=== PATIENT | male | born 1955 | race Caucasian/White ===

== ENCOUNTER 2018-06-19 05:43 | Inpatient (IN) | payer OTHER ==
[2018-06-19 05:45] VITALS: BMI 31.8
--- NOTE | 2018-06-19 05:54 | ED PDOC ---
Arrival/HPI - General Time Seen by Provider: 06/19/18 05:48 Historian: Patient - History of Present Illness Narrative History of Present Illness (Text): 06/19/18 05:50 A 63 year old, whose past medical history includes hypertension, PCI with stent placement, diabetes, CHF, CABG, CVA, CAD, presents to the emergency room complaining of shortness of breath and cough since early this morning.No chest pain.No hx. of any fever or chills.No N/V/ or D. PMD: Dr. Miramontes Time/Duration: Other (earlier today) Symptom Onset: Gradual Symptom Course: Unchanged Activities at Onset: Light Past Medical History - Provider Review Nursing Documentation Reviewed: Yes - Cardiac Hx Pacemaker: No - Neurological Hx Paralysis: No - Hematological/Oncological Hx Blood Transfusions: Yes (07/2013) Hx Blood Transfusion Reaction: No - Musculoskeletal/Rheumatological Hx Musculoskeletal Disorders: No - Psychiatric Hx Emotional Abuse: No Hx Physical Abuse: No Hx Substance Use: No - Anesthesia Hx Anesthesia Reactions: No Hx Malignant Hyperthermia: No - Suicidal Assessment Feels Threatened In Home Enviroment: No Family/Social History - Physician Review Nursing Documentation Reviewed: Yes Family/Social History: No Known Family HX Hx Alcohol Use: Yes (OCCASSIONAL) Hx Substance Use: No Allergies/Home Meds Allergies/Adverse Reactions: Allergies No Known Allergies Allergy (Verified 06/19/18 06:09) Home Medications: Home Meds Medication Instructions Recorded Confirmed Amlodipine Besylate 10 mg PO DAILY 04/22/14 05/15/14 Enalapril Maleate 2.5 mg PO DAILY 04/22/14 05/15/14 Glipizide 10 mg PO DAILY 04/22/14 05/15/14 Lisinopril/Hydrochlorothiazide 1 tab PO DAILY 04/22/14 05/15/14 [Lisinopril-Hydrochlorothiazide 25 mg-20 mg] Metoprolol Tartrate 25 mg PO DAILY 04/22/14 05/15/14 Aspirin 81 mg PO DAILY 05/13/14 05/15/14 Clopidogrel [Plavix] 75 mg PO DAILY 05/13/14 05/15/14 MetFORMIN [glucoPHAGE] 1,000 mg PO DAILY 05/15/14 05/15/14 Review of Systems - Physician Review All systems were reviewed & negative as marked: Yes - Review of Systems Respiratory: SOB, Cough Physical Exam Vital Signs Reviewed: Yes Blood Pressure: Hypertensive Pulse: Regular Respiratory Rate: Normal Appearance: Positive for: Well-Appearing Mental Status: Positive for: Alert and Oriented X 3 - Systems Exam Head: Present: Atraumatic, Normocephalic Pupils: Present: PERRL Extroacular Muscles: Present: EOMI Conjunctiva: Present: Normal Mouth: Present: Moist Mucous Membranes Neck: Present: Normal Range of Motion Respiratory/Chest: Present: Good Air Exchange, Rhonchi. No: Respiratory Distress, Accessory Muscle Use Cardiovascular: Present: Regular Rate and Rhythm, Normal S1, S2. No: Murmurs Abdomen: No: Tenderness, Distention, Peritoneal Signs Back: Present: Normal Inspection Upper Extremity: Present: Normal Inspection. No: Cyanosis, Edema Lower Extremity: Present: Normal Inspection. No: Edema Neurological: Present: GCS=15, CN II-XII Intact, Speech Normal, Motor Func Grossly Intact, Normal Sensory Function Skin: Present: Warm, Dry, Normal Color. No: Rashes Psychiatric: Present: Alert, Oriented x 3, Normal Insight, Normal Concentration Medical Decision Making ED Course and Treatment: 06/19/18 05:53 Impression: 63 year old male presenting to the emergency room complaining of shortness of breath and cough. Plan: -- Reassess and disposition Prior Visits: Notes and results from previous visits were reviewed. Progress Notes: 06/19/18 06:56 Case was discussed with Dr.A. Miramontes.Accepts to his service. 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 Ulcer: No History Surgical Site Infection Following: None - Disposition Have Diagnosis and Disposition been Completed?: Yes Diagnosis: CHF (congestive heart failure) Disposition: HOSPITALIZED Disposition Time: 06:49 Patient Problems: Current Active Problems Problem Status Onset CHF (congestive heart failure) Acute Condition: STABLE Discharge Instructions (ExitCare): Heart Failure (ED) Referrals: Delano Miramontes MD [Primary Care Provider] - Follow up with primary
[2018-06-19] MEDS ORDERED: Albuterol-Ipratrop 3 mg / 0.5 (3 ml) UD ONE (06:01)
[2018-06-19] MEDS ORDERED: Albuterol-Ipratrop 3 mg / 0.5 (3 ml) UD IH STA (06:03)
[2018-06-19 06:26] LABS: HEMOGLOBIN 13.9 g/dL (14.0-18.0); MEAN CELL VOLUME 95.9 fl (80.0-105.0); MEAN CORPUSCULAR HEMOGLOBIN 31.8 pg (25.0-35.0); MEAN CORPUSCULAR HGB CONC 33.2 g/dl (31.0-37.0); MEAN PLATELET VOLUME 11.6 fl (7.0-11.0); RBC 4.37 10^6/uL (3.5-6.1); RED CELL DISTRIBUTION WIDTH 12.9 % (11.5-14.5)
[2018-06-19 06:30] LABS: INR 1.08; PARTIAL THROMBOPLASTIN TIME 31.9 Seconds (26.9-38.3); PROTHROMBIN TIME 12.2 SECONDS (9.4-12.5)
[2018-06-19 06:31] LABS: ALBUMIN 4.4 g/dL (3.0-4.8); ALT/SGPT 29 U/L (7-56); AST/SGOT 27 U/L (17-59); BLOOD UREA NITROGEN 18 mg/dL (7-21); CALCIUM 9.1 mg/dL (8.4-10.5); GFR NON-AFRICAN AMERICAN > 60
[2018-06-19 06:42] LABS: B-TYPE NATRIURETIC PEPTIDE 949 pg/mL (0-450); TROPONIN I 0.03 ng/mL
--- NOTE | 2018-06-19 10:00 | RAD ---
Date of service: 06/19/2018 HISTORY: sob COMPARISON: No prior. FINDINGS: LUNGS: The lungs are well inflated. There is confluent airspace disease in both lower lobes. There is moderate pulmonary venous congestion with redistribution. PLEURA: No pleural effusions or pneumothorax. CARDIOVASCULAR: Mild cardiomegaly. Status post CABG. No aortic atherosclerotic calcifications present. OSSEOUS STRUCTURES: Within normal limits for the patient's age. VISUALIZED UPPER ABDOMEN: Normal. OTHER FINDINGS: None. IMPRESSION: Findings are most compatible with mild congestive heart failure with a small left pleural effusion. Confluent airspace disease in the lower lobes likely subsegmental atelectasis.
[2018-06-19] MEDS: Albuterol-Ipratrop 3 mg / 0.5 (3 ml) UD IH SCH ×5 (10:54→22:55)
[2018-06-19] MEDS: Insulin Reg-LOW-Coverage SC SCH ×3 (11:30→21:43)
--- NOTE | 2018-06-19 12:06 | HP ---
HISTORY OF PRESENT ILLNESS: The patient is a 63-year-old man with a past medical history of CAD s/p PCI with multiple stent placement s/p CABG, ischemic cardiomyopathy and chronic systolic heart failure (EF of 30%) who presented for evaluation of a 3 day history of progressively worsening dyspnea, 2-pillow orthopnea and cough productive of clear sputum. He was in his usual state of health until approximately 3 days prior to presentation when he developed the aforementioned symptoms. Over the following 48-72 hours he noticed increased work of breathing associated with decreased exercise tolerance. He also reported associated 2-pillow orthopnea and cough intermittently productive of clear sputum. He denied fevers, chills, rigors, hemoptysis, chest pain, palpitations or pedal edema associated with his symptoms. Due to his extensive underlying cardiac history, he opted for ED evaluation. In the ED he was afebrile and hemodynamically stable, albeit in mild respiratory distress. Laboratory studies demonstrated an elevated BNP and a chest x-ray was consistent with a CHF pattern. He received Lasix 40 mg IV x 1 and subsequently diuresed 1.1L with significant improvement in his respiratory status. He was subsequently admitted to the telemetry [facility] for continued management of acute on chronic systolic heart failure exacerbation. PAST MEDICAL HISTORY: As per HPI, also hypertension, non-insulin dependent diabetes mellitus and erectile dysfunction. PAST SURGICAL HISTORY: As per HPI, also surgical excision of scalp lipoma and ophthalmologic repair of right vitreous hemorrhage. ALLERGIES: NKDA. MEDICATIONS: Lisinopril/HCTZ 20/25 mg p.o. daily, Amlodipine 10 mg p.o. daily, Glipizide 10 mg p.o. b.i.d., Aspirin 81 mg p.o. daily and Lopressor 25 mg p.o. b.i.d. FAMILY HISTORY: Significant for hypertension, hyperlipidemia and diabetes. SOCIAL HISTORY: The patient reports social alcohol use and former tobacco use. He denies illicit drug abuse. REVIEW OF SYSTEMS: A 12-point review of systems is negative except as per HPI. PHYSICAL EXAMINATION: VITAL SIGNS: T 98.1, P 83, BP 140/70, RR 16, O2 saturation 96% on 3L NC. GENERAL: No apparent distress. HEENT: Normocephalic, atraumatic. EOMI. No scleral icterus. No conjunctival pallor. NECK: No JVD. No bruits. LUNGS: Decreased breath sounds at the bases with scattered rhonchi. CARDIOVASCULAR: Regular rate and rhythm. Normal S1 and S2. ABDOMEN: Normoactive bowel sounds, soft, nontender and nondistended. EXTREMITIES: Trace pedal edema. NEUROLOGIC: Awake, alert and oriented x 3. No focal motor deficits. LABORATORY DATA: WBC 11, hemoglobin 14, hematocrit 42, platelets 243. Sodium 142, potassium 4.1, chloride 106, bicarb 23, BUN 18, creatinine 0.6, glucose 203. BNP 949. Troponin 0.03. IMAGING STUDIES: 1. Chest x-ray demonstrated cardiomegaly with pulmonary venous congestion consistent with CHF pattern. ASSESSMENT: The patient is a 63-year-old man with a past medical history of CAD s/p PCI with stent placement s/p CABG, ischemic cardiomyopathy and chronic systolic heart failure who presented with a 3 day history of progressively worsening dyspnea with exertion, 2-pillow orthopnea and cough productive of clear sputum and was admitted to the telemetry [facility] for management of acute on chronic systolic heart failure exacerbation. PLAN: 1. Acute on chronic systolic heart failure exacerbation. The patient received Lasix 40 mg IV in the ED and has diuresed 1.1L with significant improvement in his respiratory status. We will continue Lasix 40 mg IV daily and continue to monitor strict I&O's. An echocardiogram is pending. We will cycle cardiac enzymes every 8 hours for 3 sets. Cardiology evaluation with Dr. Lockwood is pending. 2. CAD s/p PCI with multiple stent placement s/p CABG. Resume Aspirin 81 mg p.o. daily and Metoprolol 25 mg p.o. b.i.d. We will repeat a lipid panel to assess the need for statin therapy. 3. Ischemic cardiomyopathy. As above, an echocardiogram is pending. Continue with care as per #1. Continue Lisinopril 10 mg p.o. daily. 4. Hypertension. Blood pressure controlled. Continue Lopressor 25 mg p.o. b.i.d. and Lisinopril 10 mg p.o. daily. 5. Non-insulin dependent diabetes mellitus. We will repeat a hemoglobin A1c. Resume Glipizide 10 mg p.o. b.i.d. and start low-dose insulin sliding scale for coverage. Continue to monitor fingerstick q.a.c. and at bedtime. 6. Erectile dysfunction. 7. Prophylaxis. GI prophylaxis not indicated as the patient is eating. DVT prophylaxis not indicated as the patient is ambulatory. CODE STATUS: Full code. Manolo Miramontes MD [facility]
[2018-06-19] MEDS ORDERED: Influenza Vaccine 60 mcg/0.5 mL SYR (4YR UP) IM ONE (14:09)
[2018-06-19] MEDS ORDERED: Pneumococcal 23-Valent Vaccine IM ONE (14:09)
--- NOTE | 2018-06-19 16:12 | CARD ---
APPROVED REPORT Date of service: 06/19/2018 EXAM: Two-dimensional and M-mode echocardiogram with Doppler and color Doppler. INDICATION Congestive Heart Failure 2D DIMENSIONS Left Atrium (2D)4.4 (1.6-4.0cm)IVSd1.1 (0.7-1.1cm) LVDd5.2 (3.9-5.9cm)PWd1.2 (0.7-1.1cm) LVDs4.4 (2.5-4.0cm)FS (%) 14.4 % LVEF (%)30.6 (>50%) M-Mode DIMENSIONS Aortic Root2.40 (2.2-3.7cm)Aortic Cusp Exc.1.30 (1.5-2.0cm) Aortic Valve AoV Peak Cffnwtlr281.0cm/[place] GR.5mmHg Mitral Valve MV E Naxyirip425.0cm/sMV A Gyyiftgo80.2cm/sE/A ratio4.6 TDI E/Lateral E'0.0E/Medial E'0.0 Tricuspid Valve TR Peak Irkbhsoe925pl/sRAP [id number] Peak Gr.64mmHg [id number] LEFT VENTRICLE The left ventricle is normal size. There is normal left ventricular wall thickness. The systolic function is severely impaired. Significant regional wall motion abnormalities noted. Transmitral Doppler flow pattern is abnormal. No left ventricle thrombus noted on this study. RIGHT VENTRICLE The right ventricle is normal size. There is normal right ventricular wall thickness. Systolic function is moderately reduced. ATRIA The left atrium is mildly dilated. The right atrium is mildly dilated. AORTIC VALVE The aortic valve is mildly thickened. No aortic regurgitation is present. There is no aortic valvular stenosis. MITRAL VALVE The mitral valve is mildly thickened. Mitral regurgitation is moderate. There is no mitral valve stenosis. TRICUSPID VALVE The tricuspid valve is normal in structure. There is moderate tricuspid regurgitation. There is severe pulmonary hypertension. PULMONIC VALVE There is moderate pulmonic valvular regurgitation. GREAT VESSELS The aortic root is normal in size. PERICARDIAL EFFUSION There is no pericardial effusion. <Conclusion> The left ventricle is normal size. There is normal left ventricular wall thickness. The systolic function is severely impaired. Significant regional wall motion abnormalities noted. Transmitral Doppler flow pattern is abnormal. Mitral regurgitation is moderate. There is moderate tricuspid regurgitation. There is severe pulmonary hypertension.
--- NOTE | 2018-06-19 22:30 | CARD ---
APPROVED REPORT Date of service: 06/19/2018 EKG Measurement Heart [id number] <Conclusion> Sinus tachycardia Possible Left atrial enlargement Borderline ECG
[2018-06-19 23:42] VITALS: RESP 20
[2018-06-20] MEDS: Albuterol-Ipratrop 3 mg / 0.5 (3 ml) UD IH SCH ×2 (04:33→07:23)
[2018-06-20 06:02] VITALS: TEMP 98; O2SAT 97
[2018-06-20] MEDS: Insulin Reg-LOW-Coverage SC SCH ×2 (07:43→12:15)
[2018-06-20 07:44] LABS: BASO # 0.04 K/mm3 (0.0-2.0); BASO % 0.5 % (0.0-3.0); EOS # 0.6 (0.0-0.7); EOS % 7.6 % (1.5-5.0); HEMOGLOBIN 12.3 g/dL (14.0-18.0); LYMPH % 23.9 % (22.0-35.0); MEAN CELL VOLUME 94.7 fl (80.0-105.0); MEAN CORPUSCULAR HEMOGLOBIN 31.2 pg (25.0-35.0); MEAN PLATELET VOLUME 11.7 fl (7.0-11.0); MONO # 0.8 (0.1-0.6); MONO % 9.3 % (1.0-6.0); RBC 3.94 10^6/uL (3.5-6.1); RED CELL DISTRIBUTION WIDTH 12.7 % (11.5-14.5); WHITE BLOOD COUNT 8.4 10^3/uL (4.5-11.0)
[2018-06-20 07:47] LABS: ALB/GLOB RATIO 1.2 (1.1-1.8); ALBUMIN 3.5 g/dL (3.0-4.8); ALT/SGPT 28 U/L (7-56); AST/SGOT 21 U/L (17-59); BLOOD UREA NITROGEN 17 mg/dL (7-21); CALCIUM 8.9 mg/dL (8.4-10.5); GFR NON-AFRICAN AMERICAN > 60; HDL CHOLESTEROL 30 mg/dL (29-60)
[2018-06-20 07:56] LABS: LDL CHOLESTEROL 142 mg/dL (0-129)
--- NOTE | 2018-06-20 09:58 | CON ---
DATE OF CONSULTATION: 06/20/2018 CARDIOLOGY CONSULTATION HISTORY: The patient is a 63-year-old male, who presents with shortness of breath. CHF was diagnosed. The patient was given IV Lasix. Currently, the patient is at his baseline and denies shortness of breath. The patient is requesting to go home today. Echocardiogram done this admission reveals an EF of 30% with severe pulmonary hypertension. PAST MEDICAL HISTORY: The patient's past medical history include diabetes mellitus, history of coronary artery bypass surgery, documented ischemic cardiomyopathy. Has had multivessel PTCA and stent in the past. He has been lost to follow up with any of the physicians here. He denies chest pain. SOCIAL HISTORY: He denies smoking. REVIEW OF SYSTEMS: Positive orthopnea. Positive shortness of breath. No edema. No angina noted. Currently, all these symptoms have now resolved. PHYSICAL EXAMINATION: VITAL SIGNS: Blood pressure 137/79, heart rate is in the 80s. NECK: Negative JVD. LUNGS: Without rales. CARDIAC: Heart rate S1, S2. EXTREMITIES: Without edema. LABORATORY DATA: EKG shows normal sinus rhythm with no acute changes. Hemoglobin is 12.9, BUN and creatinine are normal. Glucose is 125. Troponins are negative x2. The ProBNP was elevated at 949. IMPRESSION: 1. Acute systolic congestive heart failure, which has now resolved. 2. No evidence for acute coronary syndrome. 3. Ischemic dilated cardiomyopathy. 4. Coronary artery disease. 5. History of percutaneous transluminal coronary angioplasty and stent. 6. History of multivessel angioplasty. 7. Diabetes mellitus. 8. Hypercholesterolemia. 9. Hypertension. PLAN: Given these findings, at the patient's request and the patient's stable clinical status, we will discharge the patient on p.o. Lasix daily. Follow up instructions including continue his KATH inhibitors as well as for followup outpatient stress test have been discussed with the patient, who agrees. Followup on outpatient visits lost will be arranged. Reji Lockwood MD
--- NOTE | 2018-06-20 10:48 | PN ---
SUBJECTIVE: The patient was seen and examined at bedside on the telemetry [facility]. No acute events overnight. He remains afebrile, hemodynamically stable and chest pain free. He has diuresed nicely since admission and reports resolution of his presenting symptoms. This morning he feels well and offers no complaints. OBJECTIVE: VITAL SIGNS: T 98, P 84, BP 137/79, RR 20 and O2 saturation 97% on 2L NC. GENERAL: No apparent distress. HEENT: PERRL, EOMI. No scleral icterus. No conjunctival pallor. NECK: No JVD, no bruits. LUNGS: Clear to auscultation. CARDIOVASCULAR: Regular rate and rhythm. Normal S1 and S2. ABDOMEN: Normoactive bowel sounds, soft, nontender and nondistended. EXTREMITIES: No edema. NEUROLOGIC: Awake, alert and oriented x 3. No focal motor deficits. LABORATORY DATA: WBC 8.4, hemoglobin 12, hematocrit 37 and platelets 221. Sodium 138, potassium 3.7, chloride 101, bicarb 30, BUN 17, creatinine 0.7 and glucose 125. Troponin 0.03 and 0.02. Cholesterol 199, triglycerides 103, HDL 30, LDL 142. TSH 1.7. DIAGNOSTIC STUDIES: 1. TTE demonstrated normal LV size with severely impaired systolic function with significant regional wall motion abnormalities and moderate mitral regurgitation, moderate tricuspid regurgitation and severe pulmonary hypertension. ASSESSMENT: The patient is a 63-year-old man with past medical history of CAD s/p PCI with stent placement s/p CABG, ischemic cardiomyopathy and chronic systolic heart failure who presented with a 3 day history of progressively worsening dyspnea with exertion, 2-pillow orthopnea and cough productive of clear sputum and was admitted to the telemetry [facility] for management of acute on chronic systolic heart failure exacerbation. PLAN: 1. Acute on chronic systolic heart failure exacerbation, resolved. The patient has diuresed nicely since admission and reports resolution of his presenting symptoms. TTE reviewed. Cardiology evaluation with Dr. Lockwood is pending. Continue Lasix 40 mg IV daily, Metoprolol 25 mg p.o. b.i.d. and Lisinopril 10 mg p.o. daily. 2. CAD s/p PCI with multiple stent placement s/p CABG. Continue Aspirin 81 mg p.o. daily and Metoprolol 25 mg p.o. b.i.d. Resume Lipitor 20 mg p.o. daily. 3. Ischemic cardiomyopathy. TTE reviewed. Continue with care as per #1. 4. Hypertension. Blood pressure controlled. Continue Lopressor 25 mg p.o. b.i.d. and Lisinopril 10 mg p.o. daily. 5. Non-insulin dependent diabetes mellitus. Continue Glipizide 10 mg p.o. b.i.d. and low-dose insulin sliding scale for coverage. 6. Pulmonary hypertension. We will arrange for outpatient follow up with a security police. 7. Erectile dysfunction. 8. Prophylaxis. GI prophylaxis not indicated as the patient is eating. DVT prophylaxis not indicated as the patient is ambulatory. CODE STATUS: Full code. Manolo Miramontes MD MTDD
[2018-06-20 12:07] VITALS: BP 107/66; PULSE 69
== END 2018-06-20 12:39 | disposition home or self-care (01) | DRG 293 ==
LOC: ED 05:43 → ERH 06:49 → 2RNO 08:58
PROVIDERS: ADMIT Internal Medicine; ATTEND Internal Medicine
DX: I11.0 Hypertensive heart disease with heart failure (principal); I50.23 Acute on chronic systolic (congestive) heart failure; E11.9 Type 2 diabetes mellitus without complications; E78.00 Pure hypercholesterolemia, unspecified; E78.5 Hyperlipidemia, unspecified; I25.10 Atherosclerotic heart disease of native coronary artery without angina pectoris; I25.5 Ischemic cardiomyopathy; I27.20 Pulmonary hypertension, unspecified; I42.0 Dilated cardiomyopathy; Z79.02 Long term (current) use of antithrombotics/antiplatelets; Z79.82 Long term (current) use of aspirin; Z86.73 Personal history of transient ischemic attack (TIA), and cerebral infarction without residual deficits; Z87.891 Personal history of nicotine dependence; Z95.1 Presence of aortocoronary bypass graft; Z95.5 Presence of coronary angioplasty implant and graft; N52.9 Male erectile dysfunction, unspecified

== ENCOUNTER 2018-07-01 06:01 | Outpatient (CLI) | payer OTHER | END 2018-07-01 06:02 | disposition home or self-care (01) | LOC: CARDIO 06:01 ==